=== PATIENT | female | born 1980 | race Caucasian/White ===

== ENCOUNTER 2024-02-28 10:50 | Emergency (ER) | payer OTHER ==
[2024-02-28 10:59] VITALS: BP 118/81; PULSE 93; RESP 18; TEMP 98; BMI 27.3
[2024-02-28] MEDS ORDERED: CYCLOBENZAPRINE HCL 10 MG TABLET (FP) ONE (12:00)
[2024-02-28] MEDS ORDERED: LIDOCAINE 4% PATCH TP ONE (12:00)
[2024-02-28] MEDS ORDERED: KETOROLAC TROMETHAMINE 30 MG/1 ML VIAL ONE (12:00)
[2024-02-28] MEDS: CYCLOBENZAPRINE HCL 10 MG TABLET (FP) PO ONE (12:02)
[2024-02-28] MEDS: LIDOCAINE 4% PATCH TP ONE (12:02)
[2024-02-28] MEDS: KETOROLAC TROMETHAMINE 30 MG/1 ML VIAL IM ONE (12:02)
[2024-02-28] MEDS ORDERED: LIDOCAINE PATCH REMOVAL MC SCH (22:00)
== END 2024-02-28 13:43 | disposition home or self-care (01) ==
LOC: JERFT 10:50
PROC: 3E0133Z Introduction of Anti-inflammatory into Subcutaneous Tissue, Percutaneous Approach (ICD-10-PCS; principal; 2024-02-28)
DX: M19.011 Primary osteoarthritis, right shoulder (principal); M25.561 Pain in right knee; M25.511 Pain in right shoulder; M79.601 Pain in right arm; M79.604 Pain in right leg; M79.605 Pain in left leg; M54.9 Dorsalgia, unspecified; M25.461 Effusion, right knee; M25.661 Stiffness of right knee, not elsewhere classified; Y04.8XXA Assault by other bodily force, initial encounter
CPT/HCPCS: 73030-TC-RT-FY; 73562-TC-RT-FY; 99284-25